=== PATIENT | female | born 1975 ===

== ENCOUNTER 2016-04-26 20:33 | Observation (INO) | payer OTHER ==
[2016-04-26 20:43] VITALS: BMI 31.8
[2016-04-26 20:46] VITALS: TEMP 97.8
[2016-04-26] MEDS ORDERED: Famotidine 20mg/50ml 50 ML IVPB STA (21:02)
--- NOTE | 2016-04-26 21:10 | ED PDOC ---
Arrival/HPI - General Chief Complaint: Chest Pain Time Seen by Provider: 04/26/16 20:55 Historian: Patient - History of Present Illness Narrative History of Present Illness (Text): 04/26/16 21:06 40 yo female h/o DM, Bipolar, presents to the ED c/o chest pain intermittent x 3 days. States two days ago she had one episode it felt sharp in mid upper chest and lasted for a few seconds. She took aspirin and it went away. Today she felt it again after she ate and it felt sharp in the same manner and in her mid upper chest. She took aspirin and it went away. She's never had reflux so she's not sure if it feels like that. Pain doesn't radiate. No nausea, vomiting , diaphoresis, cough, fever, abdominal or back pain. Did not happen with exertion. No lower extremity edema. No PE risk factors. No trauma. PMD: None Dr. Louis for her DM Past Medical History - Provider Review Nursing Documentation Reviewed: Yes - Infectious Disease Hx of Infectious Diseases: None - Reproductive Menopause: Yes - Endocrine/Metabolic Hx Diabetes Mellitus Type 2: Yes - Gastrointestinal Hx Gall Bladder Disease: Yes - Psychiatric Hx Substance Use: No - Surgical History Hx Cholecystectomy: Yes Hx Tubal Ligation: Yes - Anesthesia Hx Anesthesia: Yes Hx Anesthesia Reactions: No Hx Malignant Hyperthermia: No Family/Social History - Physician Review Nursing Documentation Reviewed: Yes Family/Social History: No Known Family HX Smoking Status: Never Smoked Hx Alcohol Use: No Hx Substance Use: No Allergies/Home Meds Allergies/Adverse Reactions: Allergies No Known Allergies Allergy (Unverified 04/26/16 21:01) Review of Systems - Physician Review All systems were reviewed & negative as marked: Yes - Review of Systems Constitutional: Normal Eyes: Normal ENT: Normal Respiratory: Normal. absent: SOB, Cough, Wheezing Cardiovascular: Chest Pain. absent: Palpitations, Edema, Calf Pain Gastrointestinal: Normal Genitourinary Female: Normal Musculoskeletal: Normal Skin: Normal Neurological: Normal Endocrine: Normal Hemo/Lymphatic: Normal Psychiatric: Normal Physical Exam Vital Signs Reviewed: Yes Vital Signs Temp Pulse Resp BP Pulse Ox 04/26/16 20:44 97.8 F 82 18 130/80 96 Temperature: Afebrile Blood Pressure: Normal Pulse: Regular Respiratory Rate: Normal Appearance: Positive for: Well-Appearing, Non-Toxic, Comfortable Pain Distress: None Mental Status: Positive for: Alert and Oriented X 3 - Systems Exam Head: Present: Atraumatic, Normocephalic Pupils: Present: PERRL Extroacular Muscles: Present: EOMI Conjunctiva: Present: Normal Mouth: Present: Moist Mucous Membranes Neck: Present: Normal Range of Motion Respiratory/Chest: Present: Clear to Auscultation, Good Air Exchange. No: Respiratory Distress, Accessory Muscle Use Cardiovascular: Present: Regular Rate and Rhythm, Normal S1, S2. No: Murmurs Abdomen: Present: Normal Bowel Sounds. No: Tenderness, Distention, Peritoneal Signs Back: Present: Normal Inspection Upper Extremity: Present: Normal Inspection. No: Cyanosis, Edema Lower Extremity: Present: Normal Inspection. No: Edema Neurological: Present: GCS=15, CN II-XII Intact, Speech Normal Skin: Present: Warm, Dry, Normal Color. No: Rashes Psychiatric: Present: Alert, Oriented x 3, Normal Insight, Normal Concentration Medical Decision Making ED Course and Treatment: 04/26/16 21:10 40 yo female with chest pain r/o ACS r/o Reflux -- Labs -- EKG, CXR -- Aspirin already taken today -- Pepcid IV -- Reevaluate and disposition 04/26/16 23:36 Patient has two sets of troponin 4 hours apart and second is 6 hours after symptoms stopped. ANGELINA score is low. Troponin negative x 2. Patient feels no pain. Symptoms are more consistent with noncardiac cause. She will f/u with her PMD in 1-2days. Advised to return to the ED if symptoms worsen or any other concern. - Lab Interpretations I have reviewed the lab results: Yes Interpretation: All labs normal - RAD Interpretation Radiology Orders: 04/26/16 21:01 CHEST PORTABLE [RAD] Stat CXR negative, no infiltrate Rose Grower: ED Physician - EKG Interpretation Interpreted by ED Physician: Yes (NSR at [address] elevations; nl intervals) Type: 12 lead EKG - Medication Orders Current Medication Orders: Discontinued Medications Famotidine (Pepcid 20mg/50ml Premix) 50 mls @ 100 mls/hr IVPB STAT STA Stop: 04/26/16 21:31 Last Admin: 04/26/16 21:51 Dose: 100 MLS/HR eMAR Start Stop Document 03/16/17 21:51 YP (Rec: 04/26/16 21:51 YP [id number]) Intravenous Solution Start Date 04/26/16 Start Time 21:51 End Date 04/26/16 End time 22:21 Total Infusion Time 30 ANGELINA Risk Score for UA/NSTEMI - ANGELINA Risk Score Age > 64: NO 3 or more CAD Risk Factors: NO Known CAD (Stenosis greater than 50%): NO Aspirin use in past 7 days: YES Severe Angina: NO EKG ST changes greater than 0.5mm: NO Positive Cardiac Marker: NO ANGELINA Score: 1 % risk at 14 days of: all cause mortality, new or recurrent SD, or severe recurrent ischemia requiring urgen revascularization: 5% Disposition/Present on Arrival - Present on Arrival Any Indicators Present on Arrival: No History of DVT/PE: No History of Uncontrolled Diabetes: No Urinary Catheter: No History of Decub. Ulcer: No History Surgical Site Infection Following: None - Disposition Have Diagnosis and Disposition been Completed?: Yes Diagnosis: Chest pain Disposition: HOME/ ROUTINE Disposition Time: 23:38 Patient Plan: Discharge Patient Problems: Current Active Problems Problem Status Diagnosed Chest pain Acute Condition: IMPROVED
[2016-04-26 21:44] LABS: ADD MANUAL DIFF? NO
[2016-04-26 21:50] LABS: BASO # 0.05 K/mm3 (0.0-2.0); BASO % 0.6 % (0.0-3.0); EOS # 0.2 (0.0-0.7); EOS % 2.4 % (1.5-5.0); GRAN # 6.09 (1.4-6.5); GRAN % 67.2 % (50.0-68.0); HEMATOCRIT 34.4 % (36.0-48.0); LYMPH # 2.2 (1.2-3.4); LYMPH % 23.9 % (22.0-35.0); MEAN CELL VOLUME 85.6 fL (80.0-105.0); MEAN CORPUSCULAR HEMOGLOBIN 30.1 pg (25.0-35.0); MEAN CORPUSCULAR HGB CONC 35.2 g/dl (31.0-37.0); MEAN PLATELET VOLUME 8.7 fl (7.0-11.0); MONO # 0.5 (0.1-0.6); MONO % 5.9 % (1.0-6.0); PLATELET COUNT 376 10^3/uL (120.0-450.0); RED CELL DISTRIBUTION WIDTH 12.2 % (11.5-14.5); WHITE BLOOD COUNT 9.1 10^3/ul (4.5-11.0)
[2016-04-26 21:57] LABS: ALB/GLOB RATIO 1.2 (1.1-1.8); ALKALINE PHOSPHATASE 45 U/L (38-133); ALT/SGPT 9 U/L (7-56); AST/SGOT 18 U/L (15-39); BILIRUBIN,TOTAL 0.7 mg/dL (0.2-1.3); BLOOD UREA NITROGEN 9 mg/dL (7-21); CALCIUM 9.1 mg/dL (8.4-10.5); CARBON DIOXIDE 29 mmol/L (21-33); CHLORIDE 102 mmol/L (98-107); GFR AFRICAN-AMERICAN > 60; GLUCOSE,RANDOM 101 mg/dL (70-110); MAGNESIUM 1.7 mg/dL (1.7-2.2); POTASSIUM 3.7 mmol/L (3.6-5.0); SODIUM 136 mmol/L (132-148); TOTAL PROTEIN 7.5 g/dL (5.8-8.3)
[2016-04-26 22:08] LABS: TROPONIN I < 0.01 ng/mL
[2016-04-27 00:23] VITALS: BP 129/62; PULSE 77; RESP 16; O2SAT 98
--- NOTE | 2016-04-27 09:25 | RAD ---
HISTORY: chest pain COMPARISON: No prior. FINDINGS: LUNGS: No active pulmonary disease. PLEURA: No significant pleural effusion identified, no pneumothorax apparent. CARDIOVASCULAR: Normal. OSSEOUS STRUCTURES: No significant abnormalities. VISUALIZED UPPER ABDOMEN: Normal. OTHER FINDINGS: None. IMPRESSION: No active disease.
--- NOTE | 2016-04-27 10:18 | CARD ---
APPROVED REPORT EKG Measurement Heart [id number] <Conclusion> Normal sinus rhythm Mild NSSTW changes
== END 2016-04-27 00:23 | disposition home or self-care (01) ==
LOC: ED 20:33 → EROBSV 21:02
PROVIDERS: ADMIT Emergency Medicine; ATTEND Emergency Medicine
DX: R07.9 Chest pain, unspecified (principal); E11.9 Type 2 diabetes mellitus without complications
CPT/HCPCS: 36415; 71010; 80053; 82550; 83615; 83735; 84484; 85025; 93005; 96365; 99284; G0378

== ENCOUNTER 2018-04-21 23:40 | Emergency (ER) | payer MEDICAID, OTHER ==
[2018-04-21 23:52] VITALS: BMI 32.9
[2018-04-21 23:57] VITALS: O2SAT 98
--- NOTE | 2018-04-22 00:18 | ED PDOC ---
Arrival/HPI - General Chief Complaint: Abdominal Pain Time Seen by Provider: 04/21/18 23:51 Historian: Patient - History of Present Illness Narrative History of Present Illness (Text): 04/22/18 00:15 42 year old female, whose past medical history includes bipolar disorder, presents to the emergency department complaining of right lower abdominal discomfort since earlier this evening. Patient denies any fevers, chills, headache, dizziness, chest pain, shortness of breath, dyspnea on exertion, cough, nausea, vomiting, diarrhea, back pain, neck pain, urinary complaints, vaginal discharge, or any other complaint. Time/Duration: 4-6 hours Symptom Onset: Gradual Symptom Course: Unchanged Activities at Onset: Light Context: Home Past Medical History - Provider Review Nursing Documentation Reviewed: Yes - Infectious Disease Hx of Infectious Diseases: None - Endocrine/Metabolic Hx Diabetes Mellitus Type 2: Yes - Gastrointestinal Hx Gall Bladder Disease: Yes - Psychiatric Hx Substance Use: No - Surgical History Hx Cholecystectomy: Yes Hx Tubal Ligation: Yes - Anesthesia Hx Anesthesia: Yes Hx Anesthesia Reactions: No Hx Malignant Hyperthermia: No Family/Social History - Physician Review Nursing Documentation Reviewed: Yes Family/Social History: No Known Family HX Smoking Status: Never Smoked Hx Alcohol Use: No Hx Substance Use: No Allergies/Home Meds Allergies/Adverse Reactions: Allergies No Known Allergies Allergy (Verified 04/21/18 23:57) Review of Systems - Physician Review All systems were reviewed & negative as marked: Yes - Review of Systems Constitutional: absent: Fevers Respiratory: absent: SOB, Cough Cardiovascular: absent: Chest Pain Gastrointestinal: Abdominal Pain. absent: Diarrhea, Nausea, Vomiting Genitourinary Female: absent: Dysuria, Vaginal Bleeding, Vaginal Discharge Musculoskeletal: absent: Back Pain, Neck Pain Neurological: absent: Headache, Dizziness Physical Exam Vital Signs Reviewed: Yes Vital Signs Temp Pulse Resp BP Pulse Ox 04/21/18 23:56 98.0 F 93 H 18 121/78 98 Temperature: Afebrile Blood Pressure: Normal Pulse: Tachycardic Respiratory Rate: Normal Appearance: Positive for: Well-Appearing, Non-Toxic, Comfortable Pain Distress: None Mental Status: Positive for: Alert and Oriented X 3 - Systems Exam Head: Present: Atraumatic, Normocephalic Pupils: Present: PERRL Extroacular Muscles: Present: EOMI Conjunctiva: Present: Normal Mouth: Present: Moist Mucous Membranes Neck: Present: Normal Range of Motion Respiratory/Chest: Present: Clear to Auscultation, Good Air Exchange. No: Respiratory Distress, Accessory Muscle Use Cardiovascular: Present: Regular Rate and Rhythm, Normal S1, S2. No: Murmurs Abdomen: No: Tenderness, Distention, Peritoneal Signs Back: Present: Normal Inspection Upper Extremity: Present: Normal Inspection. No: Cyanosis, Edema Lower Extremity: Present: Normal Inspection. No: Edema Neurological: Present: GCS=15, CN II-XII Intact, Speech Normal Skin: Present: Warm, Dry, Normal Color. No: Rashes Psychiatric: Present: Alert, Oriented x 3, Normal Insight, Normal Concentration Medical Decision Making ED Course and Treatment: 04/22/18 00:17 Impression: 42 year old female, who presents to the emergency department complaining of abdominal pain. Plan: -- CT of abdomen and Pelvis -- Labs -- Urinalysis -- Reassess and disposition Prior Visits: Notes and results from previous visits were reviewed. Progress Notes: 04/22/18 03:10 CT of abdomen and Pelvis reviewed by radiologist, shows: IMPRESSION: Changes of pelvic congestion syndrome. Fluid-filled distended stomach. Gastroparesis. Prior cholecystectomy. Uncomplicated colonic diverticulosis. No evidence of acute abdominal or pelvic pathology. 04/22/18 03:18 Patient revaluated, asymptomatic, followup care instructions given. - Lab Interpretations I have reviewed the lab results: Yes - RAD Interpretation Radiology Orders: 04/22/18 00:11 ABD & PELVIS IV CONTRAST ONLY [CT] Stat Transportation Sales Consultant: Radiologist - Scribe Statement The provider has reviewed the documentation as recorded by the Jonatan Sheikh Provider Scribe Attestation: All medical record entries made by the Jonatan were at my direction and personally dictated by me. I have reviewed the chart and agree that the record accurately reflects my personal performance of the history, physical exam, medical decision making, and the department course for this patient. I have also personally directed, reviewed, and agree with the discharge instructions and disposition. Disposition/Present on Arrival - Present on Arrival Any Indicators Present on Arrival: No History of DVT/PE: No History of Uncontrolled Diabetes: No Urinary Catheter: No History of Decub. Ulcer: No History Surgical Site Infection Following: None - Disposition Have Diagnosis and Disposition been Completed?: Yes Diagnosis: Abdominal pain Disposition: HOME/ ROUTINE Disposition Time: 03:16 Patient Plan: Discharge Patient Problems: Current Active Problems Problem Status Onset Abdominal pain Acute Condition: GOOD Discharge Instructions (ExitCare): Acute Abdomen (Belly Pain), Adult (DC) Additional Instructions: Follow up with your doctor this week/any recurrent persistent symptoms return to the emergency room Referrals: Dontrell Urban MD [Primary Care Provider] - Follow up with primary Forms: [facility] (S[place]i), WORK NOTE
[2018-04-22 01:07] LABS: URINE APPEARANCE CLEAR (CLEAR); URINE BILIRUBIN NEGATIVE (NEGATIVE); URINE BLOOD TRACE-LYSED (NEGATIVE); URINE COLOR YELLOW (YELLOW); URINE GLUCOSE (UA) NEGATIVE (NEGATIVE); URINE LEUKOCYTE ESTERASE NEGATIVE Leu/uL (NEGATIVE); URINE PROTEIN NEGATIVE mg/dL (<30 mg/dL); URINE UROBILINOGEN 0.2 E.U./dL (<1 E.U./dL)
[2018-04-22 01:07] LABS: HEMOGLOBIN 12.1 g/dL (12.0-16.0); MEAN CELL VOLUME 85.5 fl (80.0-105.0); MEAN CORPUSCULAR HEMOGLOBIN 29.2 pg (25.0-35.0); MEAN CORPUSCULAR HGB CONC 34.2 g/dl (31.0-37.0); MEAN PLATELET VOLUME 8.7 fl (7.0-11.0); RBC 4.14 10^6/uL (3.5-6.1); WHITE BLOOD COUNT 8.8 10^3/uL (4.5-11.0)
[2018-04-22 01:14] LABS: ALB/GLOB RATIO 1.2 (1.1-1.8); ALBUMIN 4.5 g/dL (3.0-4.8); ALT/SGPT 16 U/L (7-56); AST/SGOT 25 U/L (14-36); BLOOD UREA NITROGEN 10 mg/dL (7-21); CALCIUM 9.4 mg/dL (8.4-10.5); GFR NON-AFRICAN AMERICAN > 60; LIPASE 154 U/L (23-300)
[2018-04-22 01:19] LABS: URINE RBC 0 - 2 /hpf (0-2); URINE WBC 0 - 2 /hpf (0-6)
[2018-04-22] MEDS ORDERED: Iohexol 350 MG/100 ML VIAL ONE (01:28)
[2018-04-22 03:22] VITALS: BP 115/68; PULSE 88; RESP 17; TEMP 98.1
--- NOTE | 2018-04-22 10:12 | CT ---
Date of service: 04/22/2018 PROCEDURE: CT Abdomen and Pelvis with contrast HISTORY: right lower abdominal pain COMPARISON: None available. TECHNIQUE: CT scan of the abdomen and pelvis was performed after administration of intravenous contrast. Oral contrast was not administered. Coronal and sagittal reformatted images were obtained. Contrast dose: 100 mL Omnipaque 350 Radiation dose: Total exam DLP = 722.2 mGy-cm. This CT exam was performed using one or more of the following dose reduction techniques: Automated exposure control, adjustment of the mA and/or kV according to patient size, and/or use of iterative reconstruction technique. FINDINGS: LOWER THORAX: The visualized lungs are clear. LIVER: Normal in size with homogeneous enhancement. No gross lesion or ductal dilatation. GALLBLADDER AND BILE DUCTS: Well distended. No calcified gallstones, wall thickening or pericholecystic fluid. PANCREAS: Normal in size with homogeneous enhancement. No gross lesion or ductal dilatation. SPLEEN: Normal in size and appearance. ADRENALS: No discrete nodule. KIDNEYS AND URETERS: Normal in size with homogeneous enhancement. No hydronephrosis. No solid mass. VASCULATURE: No aortic aneurysm. There are no aortic atherosclerotic calcifications or mural plaque present. BOWEL: Evaluation of the bowel is limited in the absence of oral contrast. The stomach is distended and fluid-filled with ingested material. The proximal small bowel loops are normal in caliber. There is mild dilatation of fluid-filled distal small bowel loops. There is moderate amount of stool in the ascending colon. There is apparent mild circumferential mural thickening in the left hemicolon. No bowel obstruction. APPENDIX: Normal appendix. PERITONEUM: No free fluid. No free air. LYMPH NODES: No enlarged lymph nodes. BLADDER: Well distended and normal in appearance. REPRODUCTIVE: The uterus is normal in size. There are dilated venous collateral in the right adnexa draining into the right ovarian vein which is also asymmetrically dilated. BONES: No acute fracture. Within normal limits for the patient's age. OTHER FINDINGS: None. IMPRESSION: 1. No CT evidence for acute appendicitis. 2. Right-sided pelvic congestion syndrome with asymmetric dilatation of the right ovarian vein. 3. Fluid-filled mildly dilated distal small bowel loops could represent nonspecific enteritis. Apparent mild circumferential mural thickening in the left hemicolon is nonspecific and could be related to underdistention however early nonspecific colitis is also a consideration. Clinical follow-up is advised. A preliminary report was provided by [facility].. The final report is tagged to the PA review folder.
== END 2018-04-22 03:22 | disposition home or self-care (01) ==
LOC: ED 23:40
DX: R10.31 Right lower quadrant pain (principal); E11.9 Type 2 diabetes mellitus without complications; F31.9 Bipolar disorder, unspecified
CPT/HCPCS: 74177; 80053; 81001; 83690; 85027; 99283; Q9967

== ENCOUNTER 2018-06-01 08:38 | Emergency (ER) | payer OTHER, MEDICAID | END 2018-06-01 15:30 | disposition home or self-care (01) | LOC: ED 08:38 ==